=== PATIENT | male | born 1995 | race Caucasian/White ===

== ENCOUNTER 2019-11-11 10:57 | Emergency (ER) | payer SELFPAY ==
[~2019-11-11] VITALS: Ht 190.5 cm; Wt 63.5 kg
[2019-11-11 12:45] VITALS: BP 137/86
[2019-11-11] MEDS ORDERED: TETRACAINE HCL 0.5% OPTH(EYE) SOLN 4ML RIGHTEYE ONE (12:45)
[2019-11-11] MEDS ORDERED: FLUORESCEIN SOD 1 MG TEST STRIP RIGHTEYE ONE (12:45)
== END 2019-11-11 13:07 | disposition home or self-care (01) ==
LOC: ER 10:57
DX: T15.91XA Foreign body on external eye, part unspecified, right eye, initial encounter (principal); X58.XXXA Exposure to other specified factors, initial encounter

== ENCOUNTER 2022-06-21 16:03 | Emergency (ER) | payer MEDICAID, OTHER ==
[~2022-06-21] VITALS: Ht 190.5 cm; Wt 61.1 kg
[2022-06-21] MEDS ORDERED: FLUORESCEIN SOD OPTH TEST STRIP EACHEYE ONE (19:45)
[2022-06-21] MEDS ORDERED: TETRACAINE HCL 0.5% OPTH(EYE) SOLN 4ML EACHEYE ONE (19:45)
[2022-06-21] MEDS ORDERED: ERY05OO OP (20:00)
[2022-06-21 20:37] VITALS: BP 127/60
== END 2022-06-21 20:40 | disposition home or self-care (01) ==
LOC: ER 16:03
DX: T15.92XA Foreign body on external eye, part unspecified, left eye, initial encounter (principal); Z79.2 Long term (current) use of antibiotics; X58.XXXA Exposure to other specified factors, initial encounter; Y93.89 Activity, other specified; Y92.89 Other specified places as the place of occurrence of the external cause; Y99.8 Other external cause status